=== PATIENT | female | born 1995 | race Caucasian/White ===

== ENCOUNTER 2017-06-22 17:35 | Observation (INO) ==
[2017-06-22 12:55] LABS: Amphetamine Screen,Urine Negative ng/mL (Cutoff=1000); Barbiturate Screen,Urine Negative ng/mL (Cutoff=200); Benzodiazepines Screen,Urine Negative ng/mL (Cutoff=200); Cannabinoid Screen,Urine Negative ng/mL (Cutoff = 50); Cocaine Screen,Urine Negative ng/mL (Cutoff= 300); Opiate Screen,Urine Negative ng/mL (Cutoff=300); Phencyclidine Screen,Urine Negative ng/mL (Cutoff=25)
[2017-06-22 12:56] LABS: Bilirubin,Urine Negative (Negative); Blood,Urine Negative (Negative); Clarity,Urine Cloudy (Clear); Color,Urine Yellow (Yellow); Glucose,Urine (UA) 500 mg/dL (Normal); Ketones,Urine Negative (Negative); Leukocyte Esterase,Urine Negative (Negative); Nitrite,Urine Negative (Negative); PH,Urine 6.5 pH Units (5.0-8.0); Protein,Urine Negative (Neg-Trace); Specific Gravity,Urine 1.018 (1.010-1.025); Urobilinogen,Urine Normal (Normal)
[2017-06-22 12:58] LABS: Hyaline Casts,Urine None Seen per lpf (None-Few); RBC,Urine 0-3 per hpf (0-3); WBC,Urine 0-3 per hpf (0-3)
[2017-06-22 13:11] LABS: Bacteria,Urine Moderate per hpf (None-Few)
[2017-06-22 13:12] LABS: Squamous Epithelial Cell,Urine Few per lpf (None-Few)
--- NOTE | 2017-06-22 13:25 | OB/GYN History & Physical ---
Date of Encounter: 06/22/17 Time of Encounter: 13:21 Assessment and Plan (1) 35 weeks gestation of Current visit: Yes Status: Acute Will give second dose of Betamethasone at 0200 GBS Negative (2) complicated by subutex maintenance, antepartum Current visit: Yes Status: Acute Continue medication as prescribed. History of Present Illness Chief complaint: Labor evaluation HPI: Ms. Tellez is a 22 year old female at 35w4d presents to labor and delivery from Dr. Porras's office for labor evaluation. Patient was seen @ [facility] for labor evaluation last night and was given Steroids at 0200 this morning. Patient states she was dilated 2 cm there and was 3-4cm for Dr. Porras. Patient has history of PTD at 35 weeks with abruption last . Patient denies feeling contractions. Reports +FM. Patient is on Subutex 4mg po BID. Patient's blood type: A+, Rubella: Immune, Hep B: Nonreactive, GBS: Negative. Past Med Surg Social Fam HX - Past Medical History Source: patient Medical history: no medical history Psychiatric history: depression - Past Surgical History Surgical History: no surgical history - Social History Smoking Status: Never smoker Drug use: other Current living situation: Home - Independent Activity Level: Independent ambulation Recent Out of Country Travel Within the Last 8 Weeks: No Exposure or Possible Exposure to Illness During Travel: No - Family History Mother Name: selina couch Family Member Ethnicity: Non- Living Status: Still Living Hx Family Cardiac Disorders: No Hx Family Respiratory Disorders: No Hx Family Cancer: No Hx Family GI Disorders: No Hx Family Genitourinary Disorders: No Hx Family Endocrine Disorder: Yes (thyroid) Hx Family Musculoskeletal Disorders: No Hx Family Neuromuscular Disorders: No Hx Family Neurologic Disorders: No Hx Family HEENT Disorders: No Hx Family Autoimmune Disorders: No Hx Family Reproductive Disorders: No Hx Family Psychosocial Disorders: No Hx Family Medical Disorders: No Obstetrical History - Pregnancies : 2 Para: 1 Term: 0 : 1 Ab's: 0 Livin Review of System OB - Constitutional Constitutional ROS IM: no chills, no fever(s), no headache(s) - Cardiovascular Cardiovascular: no palpitations, no rapid heart rate, no syncope - Respiratory Respiratory: no cough - Gastrointestinal Gastrointestinal: no abdominal pain, no diarrhea, no heartburn, no nausea, no vomiting - Genitourinary Genitourinary: no abnormal vaginal bleeding, no dysuria, no flank pain, no urinary frequency, no urinary urgency, no vaginal discharge, no vaginal odor Exam - Constitutional Constitutional: well developed, well nourished, no acute distress, average body habitus - HEENT HEENT: Normocephaly, Mucus Membranes Moist - Neck Neck exam: full ROM, supple - Lungs Respiratory exam: CTAB - Cardiovascular Cardiovascular exam: RRR, +S1, +S2 - Abdomen Abdomen: Present: bowel sounds normal, gravid, non tender - Extremities Extremities exam: full ROM, normal capillary refill, normal inspection Deep Tendon Reflex Grade: 2+ Normal - Cervix Dilation: 4 (per RN) Effacement: 70 Station: -2 - Uterus Uterus exam: Present: normal size, normal contour - Comments Comments: FHR 125 bpm moderate variability +15x15 accels decel noted with FHR dropping down to 60 bpm. IV started, patient repositioned, Dr. Key notified. Results Abnormal lab results Urine Clarity Cloudy (Clear) A 06/22/17 12:35 Urine Glucose (UA) 500 mg/dL (Normal) H 06/22/17 12:35 Urine Bacteria Moderate per hpf (None-Few) H 06/22/17 12:35 All other labs normal. - VTE Reasons for not Prescribing Prophylaxis: Treatment not Indicated - Low risk for VTE
--- NOTE | 2017-06-22 13:29 | Anesthesia Evaluation PreOp ---
Date of Encounter: 06/22/17 Time of Encounter: 13:27 - Past History Planned Operation: ronni Cardiac History: Denies any Significant Hx Pulmonary History: Denies Any Significant HX METALLURGIST PROCESS History: Denies Any Significant HX Other Medical History: Other (IV drug abuse, currently in subutex clinic) Anesthesia History: No Prior Anesthetic Complications, Past Anesthesia (none, no family history of anesthetic problems) : Yes (, 35 weeks) Alcohol Use: none Drug use: other - Meds/Allergy Pre-op Review Medications Reviewed: Yes Allergies Reviewed: Yes Beta Blockers on Current Med List: No Anesthesia Exam Weight: 64 - HEENT Pupil (Motor): Pupils equal Mallampati: II Teeth: Normal Oral Opening: Greater than 3 - METALLURGIST PROCESS LOC: Oriented METALLURGIST PROCESS Motor: Normal RUE, Normal LUE, Normal RLE, Normal LLE, Normal Face METALLURGIST PROCESS Sensory: Normal: RUE, LUE, RLE, LLE, Face - Cardiac Rhythm: Regular Murmur: None JVD: No Carotid Bruit: No - Pulmonary Breath Sounds: bilateral Clear Respiratory Effort: Symmetrical Anesthesia Assess/Plan ASA Score: 2 Modified Valeria Scale for Level of Consciousness: Cooperative, oriented, and tranquil Anesthetic Plan: Regional
[2017-06-22 13:41] LABS: Basophils % 0.2 %; Hematocrit 31.3 % (35.3-44.9); Hemoglobin 10.3 g/dL (11.5-15.4); Lymphocytes % 15.8 %; Mean Corpuscular HGB Conc 32.9 g/dL (31.6-35.5); Mean Corpuscular Hemoglobin 26.7 pg (28.0-33.3); Mean Corpuscular Volume 81.1 fL (83.0-100.0); Mean Platelet Volume 9.9 fL (9.4-12.4); Monocytes # 0.4 K/mcL (0.0-1.3); Monocytes % 2.9 %; Neutrophils # 10.1 K/mcL (1.6-8.9); Platelet Count 380 K/mcL (140-400); Red Blood Count 3.86 M/mcL (3.82-4.97); Red Cell Distribution Width 12.5 % (11.5-14.5); Segmented Neutrophils % 80.1 %
--- NOTE | 2017-06-22 16:34 | OB Labor Progress Note ---
Date of Encounter: 06/22/17 Time of Encounter: 16:32 Labor Progress Note - Subjective Subjective: Patient resting in bed. Discussed POC with patient. Patient denies any questions or concerns - Cervix Cervix: 4/80/-3 - Heart Tones Heart Tones: 120 bpm moderate variability +15x15 accels no decels - [place]: irregular contractions noted - Interventions Interventions: SVE, discussed Patient with Dr. Key - Plan Plan: send patient to floor NST Q shift Steroids at 0200 Possible discharge home in AM
[2017-06-22] MEDS ORDERED: Ringers Solution, Lactated 1,000 ML IVC ONE (17:51)
[2017-06-22 19:43] VITALS: BP 119/69
[2017-06-22] MEDS ORDERED: *HR* Buprenorphine HCl 2 MG SUBLINGUAL TABLET SL SCH (21:00)
[2017-06-23] MEDS ORDERED: Betamethasone Acet/SodPhos 6 MG/ML MDV IM ONE (02:00)
--- NOTE | 2017-06-23 02:46 | Discharge Summary ---
Date of Encounter: 06/23/17 Time of Encounter: 02:46 - Discharge Diagnosis (1) 35 weeks gestation of Priority: Primary Status: Acute Comments: false labor Second dose of steroids given (2) complicated by subutex maintenance, antepartum Priority: Secondary Status: Acute - Discharge Medications Home Medications: Buprenorphine HCl [Subutex] 4 mg SL BID 06/22/17 [History] Vit/Iron Fumarate/FA [ Tablet] 1 each PO DAILY 06/22/17 [ History] Allergies/Adverse Reactions: 3 Allergy/AdvReac Type Severity Reaction Status Date / Time No Known Allergies Allergy Verified 06/22/17 13:32 Data Procedures and tests throughout hospitalization: Laboratory Tests 06/22/17 06/22/17 06/22/17 12:35 12:35 13:27 WBC 12.6 H RBC 3.86 Hgb 10.3 L Hct 31.3 L MCV 81.1 L MCH 26.7 L MCHC 32.9 RDW 12.5 Plt Count 380 MPV 9.9 Immature Gran % 1.0 Seg Neutrophils % 80.1 Lymphocytes % 15.8 Monocytes % 2.9 Eosinophils % 0.0 Basophils % 0.2 Neutrophils # 10.1 H Lymphocytes # 2.0 Monocytes # 0.4 Eosinophils # 0.0 Basophils # 0.0 Urine Color Yellow Urine Clarity Cloudy A Urine pH 6.5 Ur Specific Mcgrady 1.018 Urine Protein Negative Urine Glucose (UA) 500 H Urine Ketones Negative Urine Blood Negative Urine Nitrite Negative Urine Bilirubin Negative Urine Urobilinogen Normal Ur Leukocyte Esterase Negative Urine Microscopic RBC 0-3 Urine Microscopic WBC 0-3 Ur Squamous Epith Cells Few Urine Bacteria Moderate H Hyaline Casts None Seen Ur Culture Indicated? NO Urine Opiates Screen Negative Ur Barbiturates Screen Negative Ur Phencyclidine Scrn Negative Ur Amphetamines Screen Negative U Benzodiazepines Scrn Negative Urine Cocaine Screen Negative U Marijuana (THC) Screen Negative Labs on day of discharge: Labs from last 24 hours 06/22/17 06/22/17 06/22/17 13:27 12:35 12:35 WBC 12.6 H RBC 3.86 Hgb 10.3 L Hct 31.3 L MCV 81.1 L MCH 26.7 L MCHC 32.9 RDW 12.5 Plt Count 380 MPV 9.9 Immature Gran % 1.0 Seg Neutrophils % 80.1 Lymphocytes % 15.8 Monocytes % 2.9 Eosinophils % 0.0 Basophils % 0.2 Neutrophils # 10.1 H Lymphocytes # 2.0 Monocytes # 0.4 Eosinophils # 0.0 Basophils # 0.0 Urine Color Yellow Urine Clarity Cloudy A Urine pH 6.5 Ur Specific Mcgrady 1.018 Urine Protein Negative Urine Glucose (UA) 500 H Urine Ketones Negative Urine Blood Negative Urine Nitrite Negative Urine Bilirubin Negative Urine Urobilinogen Normal Ur Leukocyte Esterase Negative Urine Microscopic RBC 0-3 Urine Microscopic WBC 0-3 Ur Squamous Epith Cells Few Urine Bacteria Moderate H Hyaline Casts None Seen Ur Culture Indicated? NO Urine Opiates Screen Negative Ur Barbiturates Screen Negative Ur Phencyclidine Scrn Negative Ur Amphetamines Screen Negative U Benzodiazepines Scrn Negative Urine Cocaine Screen Negative U Marijuana (THC) Screen Negative Date of admission: 06/22/17 11:56 Primary care physician: PCP NONE Discharging clinician: Jenni Sandoval Anticipated date of discharge: 06/23/17 - Patient Status Disposition: Home, Self-Care Condition: Good Functional capacity at discharge: independent ambulation - Discharge Instructions Follow Up With: NONE,PCP [Primary Care Provider] - Tawanda Porras MD [Partnered Physician] - - Diet and Activity Activity: increase activity as tolerated Diet: regular diet Hospital Course ACTIVE DIRECTORY ADMINISTRATOR Time Attestation: Total time spent providing and/or coordinating discharge services: Time Spent: Less than 30 minutes Exam - Constitutional Vitals: Temp Pulse Resp BP Pulse Ox 98.2 F 95 18 119/69 100 06/22/17 19:42 06/22/17 19:42 06/22/17 19:42 06/22/17 19:42 06/22/17 19:42 General appearance IM: A&O X 3, pleasant, answers questions appropriately - Other Additional findings: FHR 125 bpm moderate variability +15x15 accels no decels noted. Uterine irritability noted. SVE:4/80/-3 no cervical change. Patient requesting discharge home at this time. - VTE Reasons for not Prescribing Prophylaxis: Treatment not Indicated - Low risk for VTE
[2017-06-23] MEDS ORDERED: Prenatal Vit/FA 1 EACH TABLET PO SCH (09:00)
== END 2017-06-23 03:15 | disposition home or self-care (01) ==
LOC: 1NENULAB → 1NENUOBS 17:35
PROVIDERS: ADMIT Obstetrics & Gynecology; ATTEND Obstetrics & Gynecology

== ENCOUNTER → 2017-06-27 09:11 | Observation (INO) ==
--- NOTE | 2017-06-27 00:43 | OB/GYN History & Physical ---
Date of Encounter: 06/27/17 Time of Encounter: 00:40 Assessment and Plan (1) 36 weeks gestation of Current visit: Yes Status: Acute Admit for heart monitoring and labor evaluation. (2) complicated by subutex maintenance, antepartum Current visit: No Status: Acute Continue prescribed dose of Subutex (3) uterine contractions in third trimester, antepartum Current visit: Yes Status: Acute labor evaluation History of Present Illness Chief complaint: contractions HPI: Ms. Tellez is a 22 year old female at 36w2d who arrives with complaints of contractions today. Patient received a course of steroids due to contractions and SVE of [address] Porras SVE, last dose of steroids on . Patient reports positive movement, denies vaginal bleeding and leakage of fluid. Patient is on Subutex and in group with Dr. Porras. Last office visit 06/22/17. Blood Type A+ HbSAG negative Rubella Immune Varicella Immune T. Pallidum negative GBS negative HIV negative Hep C Positive Past Med Surg Social Fam HX - Past Medical History Source: patient Medical history: no medical history Psychiatric history: depression - Past Surgical History Surgical History: no surgical history - Social History Smoking Status: Never smoker Alcohol use: none Drug use: other (Subutex) Current living situation: Home - Independent Activity Level: Independent ambulation Recent Out of Country Travel Within the Last 8 Weeks: No Exposure or Possible Exposure to Illness During Travel: No - Family History Mother Family Member Ethnicity: Non- Living Status: Still Living Hx Family Cardiac Disorders: No Hx Family Respiratory Disorders: No Hx Family Cancer: No Hx Family GI Disorders: No Hx Family Endocrine Disorder: Yes (thyroid) Hx Family Neuromuscular Disorders: No Hx Family Neurologic Disorders: No Hx Family HEENT Disorders: No Hx Family Autoimmune Disorders: No Obstetrical History - Pregnancies : 2 Para: 1 Term: 0 : 1 Ab's: 0 Livin - History/Complications History/Complications: Previous delivery & placental abruption Medications and Allergies Buprenorphine HCl [Subutex] 4 mg SL BID 06/22/17 [History] Vit/Iron Fumarate/FA [ Tablet] 1 each PO DAILY 06/22/17 [ History] 3 Allergy/AdvReac Type Severity Reaction Status Date / Time No Known Allergies Allergy Verified 06/22/17 13:32 Review of System OB All systems PM: reviewed and no additional remarkable complaints except as stated Exam - Constitutional Constitutional: well developed, well nourished, no acute distress, average body habitus - Neck Neck exam: full ROM, normal inspection - Lungs Respiratory exam: CTAB - Cardiovascular Cardiovascular exam: RRR, +S1, +S2 - Abdomen Abdomen: Present: bowel sounds normal, gravid, non tender - Extremities Extremities exam: full ROM, normal capillary refill, normal inspection - Cervix Dilation: 4 (Per RN) Effacement: 80 - Uterus Uterus exam: Present: normal size - Comments Comments: FHR currently 150 bpm, moderate variability, no accels. FHR initially WNL, then patient felt a large movement and heart rate kristopher to 210 bpm with minimal variability. Over the next 30 minutes, with IV fluid bolus, FHR decreased to 150 bpm with moderate variability. Dr. Key notified of FHR. Irregular contractions noted on toco, patient breathing through contractions. Results All other labs normal. - VTE Reasons for not Prescribing Prophylaxis: Treatment not Indicated - Low risk for VTE
[2017-06-27 00:44] LABS: Basophils % 0.3 %; Eosinophils # 0.2 K/mcL (0.0-0.6); Hematocrit 33.9 % (35.3-44.9); Hemoglobin 11.4 g/dL (11.5-15.4); Immature Granulocytes % 0.8 % (0-4); Lymphocytes # 2.5 K/mcL (0.6-4.6); Mean Corpuscular HGB Conc 33.6 g/dL (31.6-35.5); Mean Corpuscular Hemoglobin 27.1 pg (28.0-33.3); Mean Corpuscular Volume 80.5 fL (83.0-100.0); Mean Platelet Volume 9.9 fL (9.4-12.4); Monocytes # 1.4 K/mcL (0.0-1.3); Neutrophils # 11.2 K/mcL (1.6-8.9); Platelet Count 436 K/mcL (140-400); Red Blood Count 4.21 M/mcL (3.82-4.97); Red Cell Distribution Width 12.2 % (11.5-14.5); Segmented Neutrophils % 72.9 %
[2017-06-27 00:46] LABS: Bilirubin,Urine Negative (Negative); Blood,Urine Negative (Negative); Clarity,Urine Clear (Clear); Color,Urine Yellow (Yellow); Glucose,Urine (UA) Normal (Normal); Ketones,Urine Negative (Negative); Leukocyte Esterase,Urine Negative (Negative); Nitrite,Urine Negative (Negative); Protein,Urine Negative (Neg-Trace); Specific Gravity,Urine 1.007 (1.010-1.025); Urobilinogen,Urine Normal (Normal)
[2017-06-27 00:51] LABS: Amphetamine Screen,Urine Negative ng/mL (Cutoff=1000); Barbiturate Screen,Urine Negative ng/mL (Cutoff=200); Benzodiazepines Screen,Urine Negative ng/mL (Cutoff=200); Cannabinoid Screen,Urine Negative ng/mL (Cutoff = 50); Cocaine Screen,Urine Negative ng/mL (Cutoff= 300); Opiate Screen,Urine Negative ng/mL (Cutoff=300); Phencyclidine Screen,Urine Negative ng/mL (Cutoff=25)
[2017-06-27 01:48] VITALS: BP 120/70
[~2017-06-27 09:11] MED LIST: Ringers Solution, Lactated 1,000 ML IVC SCH; Ringers Solution, Lactated 1,000 ML ONE
--- NOTE | 2017-06-27 09:26 | OB/GYN Progress Note ---
Date of Encounter: 06/27/17 Time of Encounter: 09:24 - Assessment and Plan (1) heart rate decelerations affecting management of mother Current Visit: Yes Status: Acute IV fluids given. Resolution of variables and tachycardia. At time of discharge heart rate tracing was category 1. Bedside biophysical profile showed normal amniotic fluid and BPP 8/8. Follow-up with ultrasound and repeat BPP scheduled on 06/[address] Porras, primary OB. Dr. Porras has been notified of the patient's visit and findings (2) 36 weeks gestation of Current Visit: Yes Status: Acute Patient receives care with Dr. Porras. No active labor at this visit (3) complicated by subutex maintenance, antepartum Current Visit: No Status: Chronic The patient is followed and treated for this with Dr. Porras Subjective - Subjective Principal diagnosis: 36 weeks Interval history: The patient reports an active fetus. She denies any loss of fluid or vaginal bleeding. She appreciates her contractions but they are irregular and infrequent. Antepartum ROS: movement normal, contractions, no new complaints Objective - Vital Signs Vital Signs: Vital Signs Temp Pulse Resp BP 06/27/17 00:00 98.5 F 103 16 120/70 Intake and Output 06/26/17 06/27/17 06/27/17 23:59 07:59 15:59 Other: Weight 65 kg Patient Weight 06/27/17 23:59 Weight 65 kg - Exam FHR: other (Initial monitoring revealed a variable D cell with rebound tachycardia to the 200s) FHR comments: 130s, CAT 1 at time of exam Abdomen: Present: gravid. Absent: tenderness Cervical dilation: 3 Cervix effacement: 70 station: -1 Comments: Bedside ultrasound revealed a vertex fetus that was active, BPP 8/8, TISHA 20 - Labs Labs: Abnormal lab results WBC 15.4 K/mcL (4.3-11.1) H 06/27/17 00:36 Hgb 11.4 g/dL (11.5-15.4) L 06/27/17 00:36 Hct 33.9 % (35.3-44.9) L 06/27/17 00:36 MCV 80.5 fL (83.0-100.0) L 06/27/17 00:36 MCH 27.1 pg (28.0-33.3) L 06/27/17 00:36 Plt Count 436 K/mcL (140-400) H 06/27/17 00:36 Neutrophils # 11.2 K/mcL (1.6-8.9) H 06/27/17 00:36 Monocytes # 1.4 K/mcL (0.0-1.3) H 06/27/17 00:36 Ur Specific [place] 1.007 (1.010-1.025) L 06/27/17 00:36 - Allied health notes Allied health notes reviewed: nursing
== END | disposition home or self-care (01) ==
LOC: 1NENULAB
PROVIDERS: ADMIT Advanced Practice Midwife; ATTEND Advanced Practice Midwife

== ENCOUNTER → 2017-06-29 21:51 | Observation (INO) ==
[2017-06-29 16:03] LABS: Amphetamine Screen,Urine Negative ng/mL (Cutoff=1000); Barbiturate Screen,Urine Negative ng/mL (Cutoff=200); Benzodiazepines Screen,Urine Negative ng/mL (Cutoff=200); Cannabinoid Screen,Urine Negative ng/mL (Cutoff = 50); Cocaine Screen,Urine Negative ng/mL (Cutoff= 300); Opiate Screen,Urine Negative ng/mL (Cutoff=300); Phencyclidine Screen,Urine Negative ng/mL (Cutoff=25)
--- NOTE | 2017-06-29 16:44 | OB/GYN History & Physical ---
Date of Encounter: 06/29/17 Time of Encounter: 16:42 Assessment and Plan (1) uterine contractions in third trimester, antepartum Current visit: No Status: Acute FHT reactive and assuring -Monitor for cervical change -No loss of fluid or vaginal bleeding No cervical change on serial cervical exams over 5 hours. offered to let stay but desires to go home. Discharged to home with when to return and labor precautions. Pt verbalizes understanding (2) complicated by subutex maintenance, antepartum Current visit: No Status: Chronic Patient currently receiving subutex treatment. -This is private and the family is unaware. (3) 36 weeks gestation of Current visit: No Status: Acute History of Present Illness Chief complaint: Contractions HPI: Ms. Tellez is a 22 year old female at 36 weeks 4 days who presents to [facility] after being transferred from the office for labor evaluation. Upon arrival , patient's cervix was dilated 5-6 centimeters. Patient reports contractions but is unsure of the length between. She denies vaginal bleeding or leaking of fluid. She reports good movement. She appears anxious and restless desiring to have the baby today. She denies headaches, nausea, vomitting, RUQ pain, fevers or chills. She denies any dysuria and difficulty voiding. Patient is currently receiving Subutex, although she desires to keep this private from her family. Group B strep negative Hepatitis B surface antigen nonreactive HIV negative Treponema pallidum negative Rubella immune Varicella-zoster immune A positive Negative antibody screen Past Med Surg Social Fam HX - Past Medical History Attestation: Yes The following information was validated with the patient. Source: patient Medical history: no medical history Psychiatric history: depression - Past Surgical History Surgical History: no surgical history (Dental work) - Social History Smoking Status: Former smoker Smokeless Tobacco Status: No Alcohol use: none Drug use: other - Family History Mother Family Member Ethnicity: Non- Living Status: Still Living Hx Family Cardiac Disorders: No Hx Family Respiratory Disorders: No Hx Family Cancer: No Hx Family GI Disorders: No Hx Family Endocrine Disorder: Yes (hypothyroidism) Hx Family Neuromuscular Disorders: No Hx Family Neurologic Disorders: No Hx Family HEENT Disorders: No Hx Family Autoimmune Disorders: No Obstetrical History - Pregnancies : 2 Para: 1 Term: 1 : 0 Ab's: 0 Livin - History/Complications History/Complications: Previous complicated by early delivery at 35 weeks secondary to minor placental abruption. Medications and Allergies Buprenorphine HCl [Subutex] 4 mg SL BID 06/22/17 [History] Vit/Iron Fumarate/FA [ Tablet] 1 each PO DAILY 06/22/17 [ History] 3 Allergy/AdvReac Type Severity Reaction Status Date / Time No Known Allergies Allergy Verified 06/22/17 13:32 Review of System OB All systems PM: reviewed and no additional remarkable complaints except as stated - Constitutional Constitutional ROS IM: no chills, no fever(s), no headache(s) - Cardiovascular Cardiovascular: no chest pain, no dyspnea, no edema, no pedal edema - Respiratory Respiratory: no cough, no dyspnea, no wheezing - Gastrointestinal Gastrointestinal: no abdominal pain, no belching, no vomiting - Genitourinary Genitourinary: no urinary frequency, no urinary urgency, no vaginal odor - Neurological Nerological: no headache(s), no loss of vision Exam - Constitutional Constitutional: well developed, well nourished, no acute distress - HEENT HEENT: Mucus Membranes Moist - Lungs Respiratory exam: CTAB - Cardiovascular Cardiovascular exam: RRR - Abdomen Abdomen: Present: bowel sounds normal, gravid, non tender - Extremities Extremities exam: normal inspection, radial pulses palpable and symmetrical Deep Tendon Reflex Grade: 3+ Normal But Brisk - Cervix Dilation: 5 Effacement: 80 Station: -2 - Adnexa Adnexa: bilateral: normal, mass, tenderness - Comments Comments: FHT moderate variabiliy, 15x15 accelarations, 140bpm, contractions q2-3 Results All other labs normal. - VTE Reasons for not Prescribing Prophylaxis: Treatment not Indicated - Low risk for VTE
== END | disposition home or self-care (01) ==
LOC: 1NENULAB
PROVIDERS: ADMIT Student in an Organized Health Care Education/Training Program; ATTEND Student in an Organized Health Care Education/Training Program

== ENCOUNTER → 2017-07-02 00:35 | Observation (INO) ==
--- NOTE | 2017-07-02 00:52 | OB/GYN Progress Note ---
Date of Encounter: 07/02/17 Time of Encounter: 00:49 - Assessment and Plan (1) Non-stress test reactive Current Visit: Yes Status: Acute 140 bpm, moderate variability, +15x15 accels, no decels. Category I tracing. (2) 37 weeks gestation of Current Visit: Yes Status: Acute Evaluate for labor/contractions. (3) complicated by subutex maintenance, antepartum Current Visit: No Status: Chronic Follow up as scheduled. Continue Subutex as ordered by Dr. Porras. (4) uterine contractions in third trimester, antepartum Current Visit: No Status: Acute Evaluate for labor SVE without change. Subjective - Subjective Principal diagnosis: contractions Interval history: Pt arrives this evening with complaint of painful uterine contractions. Reports good movement, denies leakage of fluid and vaginal bleeding. Patient has a centering appointment tomorrow and sees Dr. Porras for a routine visit on Thursday of next week. SVE 4/thick/high and unchanged while being here for evaluation. Labor precautions discussed with patient and she understands when to return to the hospital. Antepartum ROS: movement normal, contractions, no loss of fluid, no vaginal bleeding Objective - Vital Signs Vital Signs: Intake and Output 07/01/17 07/01/17 07/02/17 15:59 23:59 07:59 Other: Weight 66.1 kg - Exam FHR: category 1 Auscultation: bilateral: normal Abdomen: Present: normal appearance, soft, gravid Uterus: Present: normal Cervical dilation: 4 Cervix effacement: Thick station: Ballotable
== END | disposition home or self-care (01) ==
LOC: 1NENULAB
PROVIDERS: ADMIT Obstetrics & Gynecology; ATTEND Obstetrics & Gynecology

== ENCOUNTER 2017-07-02 23:25 | Inpatient (IN) ==
[~2017-07-02 23:25] MED LIST changes: +*HR* FentaNYL (PF) 100 MCG/2 ML VIAL ONE; +*HR* Ropivacaine/PF 0.2% 10 ML AMPUL ONE; +Epidural Premix (fent/bupiv) 110 ML EP ONE; +Famotidine 20 MG/2 ML VIAL IVP PRN; +Metoclopramide 10 MG/2 ML VIAL IVP PRN; +Naloxone 0.4 MG/ML INJ IVP PRN
[2017-07-02 23:35] LABS: Basophils % 0.2 %; Eosinophils # 0.8 K/mcL (0.0-0.6); Eosinophils % 3.9 %; Hematocrit 37.2 % (35.3-44.9); Hemoglobin 12.1 g/dL (11.5-15.4); Immature Granulocytes % 0.8 % (0-4); Lymphocytes # 2.9 K/mcL (0.6-4.6); Lymphocytes % 14.2 %; Mean Corpuscular HGB Conc 32.5 g/dL (31.6-35.5); Mean Corpuscular Hemoglobin 26.5 pg (28.0-33.3); Mean Corpuscular Volume 81.6 fL (83.0-100.0); Mean Platelet Volume 10.1 fL (9.4-12.4); Monocytes # 1.4 K/mcL (0.0-1.3); Monocytes % 6.9 %; Neutrophils # 15.4 K/mcL (1.6-8.9); Platelet Count 378 K/mcL (140-400); Red Blood Count 4.56 M/mcL (3.82-4.97); Red Cell Distribution Width 12.8 % (11.5-14.5)
[2017-07-02 23:43] LABS: Amphetamine Screen,Urine Negative ng/mL (Cutoff=1000); Barbiturate Screen,Urine Negative ng/mL (Cutoff=200); Benzodiazepines Screen,Urine Negative ng/mL (Cutoff=200); Cannabinoid Screen,Urine Negative ng/mL (Cutoff = 50); Cocaine Screen,Urine Negative ng/mL (Cutoff= 300); Opiate Screen,Urine Negative ng/mL (Cutoff=300); Phencyclidine Screen,Urine Negative ng/mL (Cutoff=25)
--- NOTE | 2017-07-02 23:45 | Anesthesia Evaluation PreOp ---
Date of Encounter: 07/02/17 Time of Encounter: 23:29 - Past History Planned Operation: ronni Cardiac History: Denies any Significant Hx Pulmonary History: Denies Any Significant HX ENVIRONMENTAL TEST TECHNICIAN History: Denies Any Significant HX Other Medical History: Denies Any Significant HX Anesthesia History: No Prior Anesthetic Complications, Past Anesthesia : Yes (37 weeks, ) Alcohol Use: none Drug use: other (iv drug abuse, current in our centering program) Medications and Allergies Buprenorphine HCl [Subutex] 4 mg SL BID 06/22/17 [History] Vit/Iron Fumarate/FA [ Tablet] 1 each PO DAILY 06/22/17 [ History] 3 Allergy/AdvReac Type Severity Reaction Status Date / Time No Known Allergies Allergy Verified 07/02/17 23:08 - Meds/Allergy Pre-op Review Medications Reviewed: Yes Allergies Reviewed: Yes Beta Blockers on Current Med List: No Anesthesia Results - Labs 07/02/17 23:18 Anesthesia Exam O2 Sat Height 1.65 m Weight 65 kg Height: 65 Weight: 65 - HEENT Pupil (Motor): Pupils equal Mallampati: II Teeth: Normal Oral Opening: Greater than 3 - ENVIRONMENTAL TEST TECHNICIAN LOC: Oriented ENVIRONMENTAL TEST TECHNICIAN Motor: Normal RUE, Normal LUE, Normal RLE, Normal LLE, Normal Face ENVIRONMENTAL TEST TECHNICIAN Sensory: Normal: RUE, LUE, RLE, LLE, Face - Cardiac Rhythm: Regular Murmur: None JVD: No Carotid Bruit: No - Pulmonary Breath Sounds: bilateral Clear Respiratory Effort: Symmetrical Anesthesia Assess/Plan ASA Score: 2 Modified Valeria Scale for Level of Consciousness: Cooperative, oriented, and tranquil Anesthetic Plan: Regional Monitoring Plan: Standard Monitors
--- NOTE | 2017-07-02 23:47 | Anesthesia Procedures ---
Date of Encounter: 07/02/17 Time of Encounter: 23:29 Procedures: Anesthesia - Epidural/Spinal Patient ID/Chart reviewed: Yes Patient examined: Yes OB Eval: Gestational age: 37 OB Eval: : 2 OB Eval: Hx Para: 1 OB Eval: Contractions: Non-stressed pattern Consent Obtained: Yes Supplemental Oxygen: None/Room Air Site Prep: Aseptic Technique Patient position: upright Local Anesthetic: Lidocaine 1% Amount of Local Anesthetic used: 3 Touhy Needle Gauge: 18 Touhy Needle Depth (cm): 4 Catheter Depth at Skin (cm): 10 Test Dose (1.5% Lido + Epi): Volume given (mls): 3 Test Dose Result: Negative Loading Dose: Fentanyl (mcg): 100 Loading Dose: Other: 8ml .2% ropivicaine Loading Dose Administered: Thru Touhy Needle Infusion Med: 0.125% Bupivacaine w/ 2 mcg/ml Fentanyl Infusion Rate (mls/hr): [address]: Tegaderm Interspace Used: L3-L4 Loss of Resistance (BRETT): Yes Blood: No CSF: No Paresthesia: No Procedure: Strict asepsis, good brett, fhr unchanged
--- NOTE | 2017-07-02 23:59 | OB/GYN History & Physical ---
Date of Encounter: 07/03/17 Time of Encounter: 23:40 Assessment and Plan (1) 37 weeks gestation of Current visit: No Status: Acute admitted for labor (2) Uterine contractions Current visit: Yes Status: Acute Patient in active labor with contracitons 3 minutes apart and cervix being 8 cm dialted. She will be admitted to labor and delivery. - IV fluids. - Epidural. - NST assessment. (3) Tobacco smoking affecting Current visit: Yes Status: Acute Qualifiers: Trimester: third trimester Qualified Code(s): O99.333 - Smoking (tobacco) complicating , third trimester (4) complicated by subutex maintenance, antepartum Current visit: No Status: Chronic Continue subutex per RX History of Present Illness Chief complaint: Uterine Contractions HPI: Ms. Tellez is a 22 year old female at 37 0/7 weeks gestation with a PMH of opioid dependence and tobacco use during this that presents for active labor. She says her contractions started around 7:00 pm and have been 3 minutes apart. She denies any vaginal fluid leakage but admits to some vaginal bleeding earlier this morning. She denies any JEAN-BAPTISTE or vision changes. She denies any chest pain, fever, chills, nausea, vomiting, dysuria, or diarrhea. GBS: negative HepBSAg: non-reactive (02/16/17) HIV Ag/Ab: negative T. Pallidum Ab: negative Rubella Ab: positive Varicella Ab: positive Blood Type: A+ All other labs normal Past Med Surg Social Fam HX - Past Medical History Source: patient Medical history: no medical history Psychiatric history: depression - Past Surgical History Surgical History: other - Social History Smoking Status: Former smoker Smokeless Tobacco Status: No Alcohol use: none Drug use: other (iv drug abuse, current in our centering program) Current living situation: Home - Independent Activity Level: Independent ambulation Recent Out of Country Travel Within the Last 8 Weeks: No Exposure or Possible Exposure to Illness During Travel: No - Family History Mother Family Member Ethnicity: Non- Living Status: Still Living Hx Family Cardiac Disorders: No Hx Family Respiratory Disorders: No Hx Family Cancer: No Hx Family GI Disorders: No Hx Family Endocrine Disorder: Yes (hypothyroidism) Hx Family Neuromuscular Disorders: No Hx Family Neurologic Disorders: No Hx Family HEENT Disorders: No Hx Family Autoimmune Disorders: No Obstetrical History - Pregnancies : 2 Para: 1 Term: 1 : 0 Ab's: 0 Livin Medications and Allergies Buprenorphine HCl [Subutex] 4 mg SL BID 06/22/17 [History] Vit/Iron Fumarate/FA [ Tablet] 1 each PO DAILY 06/22/17 [ History] 3 Allergy/AdvReac Type Severity Reaction Status Date / Time No Known Allergies Allergy Verified 07/02/17 23:08 Exam - Vital Signs Vital signs: BP: 136/56 HR: 81 FHR: 147 [place]: 69 - Constitutional Constitutional: well developed, well nourished, no acute distress, average body habitus - Lungs Respiratory exam: CTAB - Cardiovascular Cardiovascular exam: RRR, +S1, +S2 - Abdomen Abdomen: Present: bowel sounds normal, gravid, non tender - Extremities Extremities exam: full ROM, normal inspection, radial pulses palpable and symmetrical Deep Tendon Reflex Grade: 2+ Normal - Cervix Dilation: 8 (per nurse) Results Result Diagrams: 07/02/17 23:18 Abnormal lab results WBC 20.8 K/mcL (4.3-11.1) H 07/02/17 23:18 MCV 81.6 fL (83.0-100.0) L 07/02/17 23:18 MCH 26.5 pg (28.0-33.3) L 07/02/17 23:18 Neutrophils # 15.4 K/mcL (1.6-8.9) H 07/02/17 23:18 Monocytes # 1.4 K/mcL (0.0-1.3) H 07/02/17 23:18 Eosinophils # 0.8 K/mcL (0.0-0.6) H 07/02/17 23:18 All other labs normal. - VTE Reasons for not Prescribing Prophylaxis: Treatment not Indicated - Low risk for VTE - Attending Attestation I examined this patient and my medical decision-making was reviewed with the Resident Physician. I agree with the documented findings, disposition and treatment plan as described except to the extent set forth below. BASSAM Dorsey
--- NOTE | 2017-07-03 00:34 | OB Labor Progress Note ---
Date of Encounter: 07/03/17 Time of Encounter: 00:32 Labor Progress Note - Subjective Subjective: Pt resting between the contractions after epidural placement. Having some pubic pain with contractions. - Cervix Cervix: 9/90/0 - Heart Tones Heart Tones: 145 bpm, moderate variability, +15x15 accels, no decels. Category I tracing - [place]: 2-3 minutes - Interventions Interventions: SVE, AROM for moderate amount of clear fluid. - Plan Plan: Continue labor management Anticipate
--- NOTE | 2017-07-03 01:54 | OB/GYN Procedure Note ---
Delivery - Delivery Date: 07/03/17 Provider: Jenni Sandoval [place] [facility] [place] Intrapartum events: none Delivery induction: none Delivery augmentation: rupture of membranes (at 9cm) Delivery monitor: external FHT, external uterine Anesthesia: epidural Estimated Blood Loss: 100 - (s) A Delivery Date: 07/03/17 Delivery Time: 01:30 Presentation: vertex Position: HERI Route of delivery: Gender: Male Viability: Viable Pounds: 6 Ounces: 14 Weight Gram: 3125 kg at 1 minute: 8 at 5 mins: 9 Shoulder Dystocia: not encountered Placenta: spontaneous Cord: 3 umbilical vessels - Repair Episiotomy: none Laceration Description: Labial, Superficial - Complications Delivery complications: none Delivery comments: Called to patient room due to her complaint of increased rectal pressure. Pt complete upon exam. Under maternal effort, of viable male infant over intact perineum. Bilateral superficial labial lacerations, hemostatic. NB to maternal abdomen, cord clamped and cut after pulsation ceased. Spontaneous delivery of intact placenta. No meconium, nuchal cord or shoulder dystocia encountered. EBL 100 mL. Mother and infant stable for 2 hour recovery. - Disposition Mom disposition: stable in LDR disposition: stable in LDR
[2017-07-03] MEDS ORDERED: Oxytocin 20 units/ LR 1000 mL 20 UNIT/1,000 ML BAG IVC SCH (02:14)
[2017-07-03] MEDS ORDERED: Acetaminophen 325 MG TABLET PO PRN (02:14)
[2017-07-03] MEDS ORDERED: Benzocaine/Menthol 56 GM AEROSOL SPRAY TP PRN (02:14)
[2017-07-03] MEDS: Ibuprofen 600 MG TABLET PO PRN ×2 (02:51→09:57)
[2017-07-03] MEDS: Prenatal Vit/FA 1 EACH TABLET PO SCH (09:57)
[2017-07-03] MEDS: *HR* Buprenorphine HCl 8 MG TAB.SUBL SL SCH ×2 (09:58→20:59)
[2017-07-04 08:25] VITALS: BP 104/59
[2017-07-04] MEDS: Ibuprofen 600 MG TABLET PO PRN (08:48)
[2017-07-04] MEDS: Prenatal Vit/FA 1 EACH TABLET PO SCH (08:48)
[2017-07-04] MEDS: *HR* Buprenorphine HCl 8 MG TAB.SUBL SL SCH (08:48)
--- NOTE | 2017-07-04 10:15 | Discharge Summary ---
Date of Encounter: 07/04/17 Time of Encounter: 10:13 - Discharge Diagnosis (1) Tobacco smoking affecting Priority: Secondary Status: Acute Qualifiers: Trimester: third trimester Qualified Code(s): O99.333 - Smoking (tobacco) complicating , third trimester (2) 37 weeks gestation of Priority: Primary Status: Acute (3) complicated by subutex maintenance, antepartum Priority: Secondary Status: Chronic (4) Vaginal delivery Priority: Primary Status: Acute - Discharge Medications Prescriptions: Ibuprofen [Motrin] 600 mg PO Q6HR PRN #60 tablet PRN Reason: Cramping Home Medications: Buprenorphine HCl [Subutex] 4 mg SL BID 06/22/17 [History] Vit/Iron Fumarate/FA [ Tablet] 1 each PO DAILY 06/22/17 [ History] Ibuprofen [Motrin] 600 mg PO Q6HR PRN #60 tablet 07/04/17 [Rx] Allergies/Adverse Reactions: 3 Allergy/AdvReac Type Severity Reaction Status Date / Time No Known Allergies Allergy Verified 07/02/17 23:08 Data Procedures and tests throughout hospitalization: Laboratory Tests 07/02/17 07/02/17 23:18 23:18 WBC 20.8 H RBC 4.56 Hgb 12.1 Hct 37.2 MCV 81.6 L MCH 26.5 L MCHC 32.5 RDW 12.8 Plt Count 378 MPV 10.1 Immature Gran % 0.8 Seg Neutrophils % 74.0 Lymphocytes % 14.2 Monocytes % 6.9 Eosinophils % 3.9 Basophils % 0.2 Neutrophils # 15.4 H Lymphocytes # 2.9 Monocytes # 1.4 H Eosinophils # 0.8 H Basophils # 0.0 Urine Opiates Screen Negative Ur Barbiturates Screen Negative Ur Phencyclidine Scrn Negative Ur Amphetamines Screen Negative U Benzodiazepines Scrn Negative Urine Cocaine Screen Negative U Marijuana (THC) Screen Negative Date of admission: 07/02/17 23:25 Primary care physician: PCP NONE Consults: 07/03/17 02:14 Consult to Mobile Architect [CONS] Routine Comment: Vaginal delivery, consult needed Consult to Earth Science Teacher [CONS] Routine Reason for SW Consult: Subutex Discharging clinician: Shelia Seo Anticipated date of discharge: 07/04/17 - Patient Status Disposition: Home, Self-Care Condition: Good Functional capacity at discharge: independent ambulation Overall status at discharge: patient is progressing back to baseline - Discharge Instructions - Diet and Activity Activity: resume usual activities as tolerated Diet: advance to your usual diet Hospital Course Reason for admission: active labor, IUP at term Delivery: Episiotomy: none Laceration: none Other procedures: none complications: none Discharge diagnosis: IUP at term delivered [place] baby: male Time Attestation: Total time spent providing and/or coordinating discharge services: Time Spent: Less than 30 minutes Exam - Constitutional Vitals: Temp Pulse Resp BP Pulse Ox 99.2 F 98 16 104/59 100 07/04/17 07:30 07/04/17 07:30 07/04/17 07:30 07/04/17 07:30 07/03/17 20:15 General appearance IM: A&O X 3 - Respiratory Respiratory exam: Present: CTAB - Cardiovascular Cardiovascular exam IM: Present: RRR - GI/Abdominal GI/Abdominal exam IM: soft - Uterus Position: 1 Finger Below Umbilicus - Extremities Exam Extremities exam IM: Absent: tenderness
== END 2017-07-04 10:40 | disposition home or self-care (01) | DRG 775 ==
LOC: 1NENULAB → 1NENUOBS 07-03 04:00
PROVIDERS: ADMIT Student in an Organized Health Care Education/Training Program; ATTEND Student in an Organized Health Care Education/Training Program

== ENCOUNTER 2019-03-09 19:33 | Inpatient (IN) ==
[2019-03-09 19:14] LABS: Amphetamine Screen,Urine Negative ng/mL (Cutoff=1000); Barbiturate Screen,Urine Negative ng/mL (Cutoff=200); Benzodiazepines Screen,Urine Negative ng/mL (Cutoff=200); Cannabinoid Screen,Urine Negative ng/mL (Cutoff = 50); Cocaine Screen,Urine Negative ng/mL (Cutoff= 300); Opiate Screen,Urine Negative ng/mL (Cutoff=300); Phencyclidine Screen,Urine Negative ng/mL (Cutoff=25)
--- NOTE | 2019-03-09 19:22 | OB/GYN History & Physical ---
Date of Encounter: 03/09/19 Time of Encounter: 19:03 Assessment and Plan (1) 38 weeks gestation of Current visit: Yes Status: Acute (2) Opiate abuse, episodic Current visit: Yes Status: Acute (3) Late care Current visit: Yes Status: Acute (4) heart rate decelerations affecting management of mother Current visit: No Status: Acute Prolonged deceleration noted to 60 BPM lasting approximately 3 minutes. Plan to admit for delivery. EPidural as requested. Will consider augmentation with pitocin if needed. Anticipate . (5) Uterine contractions Current visit: No Status: Acute History of Present Illness Chief complaint: contractions HPI: Ms. Tellez is a 23 year old female presenting at 38w2d with c/o contractions. She reports that she was having about one per hour since yesterday but they got closer to about every 10 minutes since her appointment today and even closer since. She denies leaking or bleeding. She was 4cm in office today. She does admit to a recent relapse of subutex abuse. She used to inject subutex prior to her last . She was in the baby centered recovery group with her last . She was clean until a few weeks ago when she used subutex off the street. This is also complicated by late care and marijuana use. She reports good FM. No other complaints today. Past Med Surg Social Fam HX - Past Medical History Medical history: no medical history Psychiatric history: depression - Past Surgical History Surgical History: no surgical history Additional surgical history: dental surgery - Social History Smoking Status: Never smoker Smokeless Tobacco Status: No Alcohol use: none Drug use: other - Family History Mother Family Member Ethnicity: Non- Living Status: Still Living Hx Family Cardiac Disorders: No Hx Family Respiratory Disorders: No Hx Family Cancer: No Hx Family GI Disorders: No Hx Family Endocrine Disorder: Yes (hypothyroidism) Hx Family Neuromuscular Disorders: No Hx Family Neurologic Disorders: No Hx Family HEENT Disorders: No Hx Family Autoimmune Disorders: No Obstetrical History - Pregnancies : 3 Para: 2 Term: 0 : 2 Ab's: 0 Livin Medications and Allergies Buprenorphine HCl [Subutex] 2 mg SL DAILY 06/22/17 [History] Vit/Iron Fumarate/FA [ Tablet] 1 each PO DAILY 06/22/17 [History] Allergy/AdvReac Type Severity Reaction Status Date / Time No Known Allergies Allergy Verified 07/02/17 23:08 Review of System OB All systems PM: reviewed and no additional remarkable complaints except as stated Exam - Constitutional Constitutional: well developed, well nourished, moderate distress - HEENT HEENT: Mucus Membranes Moist - Lungs Respiratory exam: CTAB - Cardiovascular Cardiovascular exam: RRR - Abdomen Abdomen: Present: gravid, non tender - Extremities Extremities exam: normal inspection - Vagina Vagina: Present: normal moisture - Cervix Dilation: 4 Effacement: 80 Station: -2 - Anus/Rectum Anus/Rectum: Present: normal perianal skin Results Result Diagrams: 03/09/19 19:31 All other labs normal. - VTE Reasons for not Prescribing Prophylaxis: Treatment not Indicated - Low risk for VTE
[~2019-03-09 19:33] MED LIST changes: -*HR* FentaNYL (PF) 100 MCG/2 ML VIAL ONE; -*HR* Ropivacaine/PF 0.2% 10 ML AMPUL ONE; -Epidural Premix (fent/bupiv) 110 ML EP ONE; +Ondansetron 4 MG/2 ML VIAL IVP PRN; -Ringers Solution, Lactated 1,000 ML IVC SCH
[2019-03-09] MEDS ORDERED: Ringers Solution, Lactated 1,000 ML IVC SCH (19:45)
[2019-03-09 19:51] LABS: Basophils % 0.3 %; Eosinophils # 0.2 K/mcL (0.0-0.6); Eosinophils % 1.5 %; Hematocrit 30.5 % (35.3-44.9); Hemoglobin 9.5 g/dL (11.5-15.4); Immature Granulocytes % 0.6 % (0-4); Lymphocytes # 2.8 K/mcL (0.6-4.6); Lymphocytes % 20.1 %; Mean Corpuscular HGB Conc 31.1 g/dL (31.6-35.5); Mean Corpuscular Hemoglobin 23.6 pg (28.0-33.3); Mean Corpuscular Volume 75.9 fL (83.0-100.0); Mean Platelet Volume 9.7 fL (9.4-12.4); Monocytes # 1.2 K/mcL (0.0-1.3); Monocytes % 8.7 %; Neutrophils # 9.6 K/mcL (1.6-8.9); Platelet Count 488 K/mcL (140-400); Red Blood Count 4.02 M/mcL (3.82-4.97); Red Cell Distribution Width 13.5 % (11.5-14.5); Segmented Neutrophils % 68.8 %
[2019-03-09] MEDS ORDERED: Famotidine 20 MG/2 ML VIAL IVP ONE (20:10)
[2019-03-09] MEDS ORDERED: *HR* FentaNYL (PF) 100 MCG/2 ML VIAL EP ONE (20:18)
[2019-03-09] MEDS ORDERED: Bupivacaine-MPF 0.25% 10 ML VIAL EP ONE (20:18)
[2019-03-09] MEDS ORDERED: *HR* FentaNYL (PF) 100 MCG/2 ML VIAL ONE (20:19)
[2019-03-09] MEDS ORDERED: Bupivacaine-MPF 0.25% 10 ML VIAL ONE (20:19)
[2019-03-09] MEDS ORDERED: Epidural Premix (fent/bupiv) 110 ML EP SCH (20:30)
--- NOTE | 2019-03-09 21:04 | Anesthesia Evaluation PreOp ---
Date of Encounter: 03/09/19 Time of Encounter: 20:36 - Past History Planned Operation: JANNETTE Cardiac History: Denies any Significant Hx Pulmonary History: Denies Any Significant HX REVENUE FIELD AUDITOR History: Denies Any Significant HX Other Medical History: Denies Any Significant HX Anesthesia History: No Prior Anesthetic Complications (never had any procedure requiring GA; denies family h/o GA complications), Past Anesthesia (JANNETTE x 2: one worked, one didn't) : Yes Alcohol Use: none Drug use: prescription drug abuse (buprenorphine), other Medications and Allergies Buprenorphine HCl [Subutex] 2 mg SL DAILY 06/22/17 [History] Vit/Iron Fumarate/FA [ Tablet] 1 each PO DAILY 06/22/17 [History] Allergy/AdvReac Type Severity Reaction Status Date / Time No Known Allergies Allergy Verified 07/02/17 23:08 - Meds/Allergy Pre-op Review Medications Reviewed: Yes Allergies Reviewed: Yes Beta Blockers on Current Med List: No Anesthesia Results - Labs 03/09/19 19:31 Anesthesia Exam O2 Sat Height 1.65 m Height 1.65 m Weight 62.3 kg Weight 62.3 kg NPO (# of Hours): solids >6hrs Pain Scale: 9 Pain Scale Used: Numeric (1 - 10) - HEENT Pupil (Motor): Pupils equal Mallampati: II Teeth: Normal Oral Opening: Greater than 3 - REVENUE FIELD AUDITOR LOC: Oriented REVENUE FIELD AUDITOR Motor: Normal RUE, Normal LUE, Normal RLE, Normal LLE, Normal Face REVENUE FIELD AUDITOR Sensory: Normal: RUE, LUE, RLE, LLE, Face - Cardiac Rhythm: Regular Murmur: None - Pulmonary Breath Sounds: bilateral Clear Respiratory Effort: Symmetrical Anesthesia Assess/Plan ASA Score: 2 Level of consciousness: Cooperative, Oriented, Restless Anesthetic Plan: Epidural Reason for No Neuroaxial/Regional Block: Other Autologous Blood: No Monitoring Plan: Standard Monitors Recovery Plan: Other
--- NOTE | 2019-03-09 21:07 | Anesthesia Procedures ---
Date of Encounter: 03/09/19 Time of Encounter: 21:05 Procedures: Anesthesia - Epidural/Spinal Patient ID/Chart reviewed: Yes Patient examined: Yes OB Eval: Gestational age: 38 weeks 2 days OB Eval: : 3 OB Eval: Hx Para: 2 OB Eval: Contractions: Non-stressed pattern Consent Obtained: Yes Supplemental Oxygen: None/Room Air Site Prep: Aseptic Technique, Sterile prep and drape, 0.5% Chlorhexidine/Alcohol Patient position: upright Local Anesthetic: Lidocaine 1% Amount of Local Anesthetic used: 3 Touhy Needle Gauge: 18 Touhy Needle Depth (cm): 6 Catheter Depth at Skin (cm): 11 Test Dose (1.5% Lido + Epi): Volume given (mls): 5 Test Dose Result: Negative Loading Dose: 0.25% Marcaine (mls): 5 Loading Dose: Fentanyl (mcg): 100 Loading Dose Administered: Thru Catheter Infusion Med: 0.125% Bupivacaine w/ 2 mcg/ml Fentanyl Infusion Rate (mls/hr): 14 (w/ demand bolus of 5mL q30min PRN) Catheter Secured in Place: Tegaderm, Tape Interspace Used: L4-L5 Loss of Resistance (BRETT): Yes Blood: No CSF: Yes Paresthesia: No Spinal Needle Gauge: 25 (intentional meningeal puncture using pencil point spinal needle through Tuohy) Procedure: successful on 1st attempt; patient tolerated procedure well; VSS Vitals + FHT's: Please see REINALDO Suero's electronic records for VS entry.
--- NOTE | 2019-03-09 22:17 | Event Note ---
Date of Encounter: 03/09/19 Time of Encounter: 22:15 Called the patient's bedside for heart rate deceleration. Patient had had an epidural placed at 45 minutes prior and had some mild hypotension. Patient was being repositioned by multiple labor and delivery staff. Cervical check she was 4-5/90/0 in vertex. There is no evidence of spontaneous rupture of membranes there felt to be 4 bag. The patient reported that she had a gush of fluid prior to the deceleration and there was some clear fluid on the patient's pad. With repositioning and IV fluids along with facemask oxygen the heart rate requiring liberated and became reassuring, category 1. The patient did give informed consent to proceed with a primary section should there be nonreassuring heart rate tracing that was persistent. She also is planning on a tubal ligation and has signed tubal papers. This was confirmed. She also gave consent for tubal ligation if her was needed.
[2019-03-10] MEDS ORDERED: Acetaminophen 325 MG TABLET PO ONE (03:22)
[2019-03-10] MEDS ORDERED: Oxytocin 20 units/ LR 1000 mL 20 UNIT/1,000 ML BAG IVC SCH ×2 (06:00→14:30)
--- NOTE | 2019-03-10 06:54 | Anesthesia Progress Note ---
Date of Encounter: 03/10/19 Time of Encounter: 06:51 Anesthesia Note - Note Note: called to patient bedside to evaluate breakthrough labor pain; patient reports bilateral lower pelvic pain; 5mL of 0.125% bupivicaine administered through catheter in two equally divided doses over a period of 5 min. Patient reports significant improvement in pain. VSS 03/10/19 06:51
--- NOTE | 2019-03-10 07:08 | OB Labor Progress Note ---
Date of Encounter: 03/10/19 Time of Encounter: 07:05 Labor Progress Note - Subjective Subjective: Pt more comfortable after epidural bolus dose. - Cervix Cervix: 5cm/80/0 per RN - Heart Tones Heart Tones: Category II, prolonged deceleration improved with repositioning, IV bolus and oxygen - Kenel Kenel: irregular - Plan Physician notified: Yes Physician notified details: Dr. Foote notified of prolonged FHT deceleration at time of decleration. Plan: Continue to monitor. Pitocin ordered prior to last deceleration but held due to concerns with FHT tracing.
[2019-03-10] MEDS ORDERED: Epidural Premix (fent/bupiv) 110 ML EP SCH (09:30)
--- NOTE | 2019-03-10 10:24 | OB Labor Progress Note ---
Date of Encounter: 03/10/19 Time of Encounter: 10:22 Labor Progress Note - Subjective Subjective: Patient getting uncomfortable; epidural not currently providing relief. - Vital Signs Vital Signs: VSS - Cervix Cervix: 6-7/80/BBOW - Heart Tones Heart Tones: 150 moderate variability with 15 x 15 accels occasional deceleration - [place]: Contractions every 2-3 minutes - Plan Plan: Continue routine labor management GBS negative Pitocin infusing; titrate as needed Consider AROM after Dr Tapia is in house vs Vaginal Delivery - will continue to monitor tracing closely POC per consult with Dr Tapia
--- NOTE | 2019-03-10 13:06 | OB Labor Progress Note ---
Date of Encounter: 03/10/19 Time of Encounter: 13:01 Labor Progress Note - Subjective Subjective: Ms Tellez states she is feeling her contractions in her lower abdomen only - Vital Signs Vital Signs: VSS - Cervix Cervix: 8/90/0 - Heart Tones Heart Tones: 125 moderate variability with 15 x 15 accels and no decels - [place]: Contractions every 2-3 minutes - Interventions Interventions: AROM for small amount of clear fluid; fetus and patient tolerated well. - Plan Physician notified: No Plan: Continue routine labor management GBS negative Pitocin infusing; titrate as needed Anticipate vaginal delivery POC per consult with Dr Tapia
--- NOTE | 2019-03-10 14:25 | OB/GYN Procedure Note ---
Delivery - Delivery Date: 03/10/19 Provider: Ning Jacobo Intrapartum events: none Delivery induction: none Delivery augmentation: pitocin Delivery monitor: external FHT, external uterine Anesthesia: epidural Quantitated Blood Loss: 100 - (s) Infant A Infant Delivery Date: 03/10/19 Infant Delivery Time: 13:50 Presentation: vertex Position: HERI Route of delivery: Gender: Male Viability: Viable Pounds: 8 Ounces: 7 Weight Gram: 3.825 kg at 1 minute: 8 at 5 mins: 9 Shoulder Dystocia: not encountered Specimens collected: cord blood Placenta: spontaneous Cord: 3 umbilical vessels - Repair Episiotomy: none Laceration Description: Perineal - 1st Degree, Superficial - Complications Delivery complications: none Delivery comments: of viable, vigorous male infant in the HERI position. No nuchal cord, no shoulder dystocia, no meconium encountered. Infant placed on maternal abdomen, warmed, dried and stimulated. Cord double clamped and cut after pulsations ceased with the assistance of FOB. Apgars 8 and 9 at one and five minutes of age respectively. Placenta delivered spontaneously and appears grossly intact; 3 vessel cord. Upon perineal inspection, a first degree laceration was noted and repaired with 2-0 monocryl. Several small hemostatic superficial lacerations were noted and left to heal by second intention. Fundus firm and at U/3 with scant bleeding. EBL 100mL. Dr Tapia notified of delivery - Disposition Mom disposition: stable in LDR disposition: stable in LDR
[2019-03-10] MEDS ORDERED: Rho Immune Globulin 1,500 UNIT SYRINGE IM PRN (14:30)
[2019-03-10] MEDS ORDERED: Benzocaine/Menthol 56 GM AEROSOL SPRAY TP PRN (14:30)
[2019-03-10] MEDS ORDERED: Measles/Mumps/Rubella Vacc 0.5 ML VIAL SQ PRN (14:30)
[2019-03-10] MEDS ORDERED: Acetaminophen 325 MG TABLET PO PRN (14:30)
[2019-03-10] MEDS ORDERED: Oxytocin 20 units/ LR 1000 mL 20 UNIT/1,000 ML BAG IVC ONE (14:30)
[2019-03-10] MEDS: Ibuprofen 600 MG TABLET PO PRN ×2 (15:01→22:57)
[2019-03-10] MEDS: Melatonin 3 MG TABLET PO SCH (22:58)
[2019-03-11] MEDS: Ibuprofen 600 MG TABLET PO PRN ×2 (05:29→18:21)
[2019-03-11] MEDS: Prenatal Vit/FA 1 EACH TABLET PO SCH (10:35)
--- NOTE | 2019-03-11 10:47 | OB/GYN Progress Note ---
Date of Encounter: 03/11/19 Time of Encounter: 10:43 - Assessment and Plan (1) Drug abuse and dependence Current Visit: Yes Status: Acute currently on detox regimen patient scheduled to join subutex group (2) Vaginal delivery Current Visit: No Status: Acute Continue routine care discharge home tomorrow. Subjective - Subjective Principal diagnosis: status post vaginal delivery Interval history: Patient day one . Patient is currently detoxing from injecting subutex. Patient eating regular diet. Patient reports passing a large blood clot early this morning. Patient denies tubal. Patient is aware that tubal may not be able to be done today. Patient reports: appetite normal, voiding normally, pain well controlled, ambulating normally : doing well, bottle feeding (and breast feeding) Objective - Latest Vital Signs Latest vital signs: Vital Signs Temp Pulse Resp BP Pulse Ox 03/11/19 05:30 98.6 F 72 16 111/64 99 03/10/19 22:50 97.8 F 83 16 115/73 99 03/10/19 19:07 98.4 F 64 16 106/63 100 03/10/19 17:58 97.7 F 63 16 110/63 98 Intake and Output 03/10/19 03/11/19 03/11/19 23:59 07:59 15:59 Intake Total 800 / 800 480 / 480 Output Total 1100 / 1100 400 / 400 Balance -300 / -300 80 / 80 Intake: Oral 800 / 800 480 / 480 Output: Urine 1100 / 1100 400 / 400 - Exam Lungs: bilateral: normal Chest: Normal S1, Normal S2 Extremities: Present: normal Abdomen: Present: normal appearance, soft, gravid Uterus: Present: normal, firm Uterus Position: At Umbilicus, Midline
[2019-03-11] MEDS: Melatonin 3 MG TABLET PO SCH (21:18)
[2019-03-11] MEDS ORDERED: *HR* LORazepam 2 MG/ML VIAL IVP PRN (23:21)
[2019-03-12] MEDS: Ibuprofen 600 MG TABLET PO PRN ×2 (03:06→09:18)
[2019-03-12 08:21] VITALS: BP 114/71
[2019-03-12] MEDS: Prenatal Vit/FA 1 EACH TABLET PO SCH (08:41)
--- NOTE | 2019-03-12 11:11 | Discharge Summary ---
Date of Encounter: 03/12/19 Time of Encounter: 11:07 - Discharge Diagnosis (1) Drug withdrawal Priority: Primary Status: Acute Qualifiers: Substance type: opioid Qualified Code(s): F11.23 - Opioid dependence with withdrawal (2) Opiate abuse, episodic Priority: Primary Status: Acute (3) Vaginal delivery Priority: Primary Status: Acute Comments: Stable, pt states she is feeling symptoms of withdrawal including pain and nausea. Pt states desires to be discharged so she can go to the ED for treatment for her withdrawal symptoms. Bleeding minimal, breast and bottle feeding. - Discharge Medications Prescriptions: New Ferrous Sulfate 325 mg PO 0800 #60 tablet Acetaminophen [Tylenol] 650 mg PO Q6HR PRN tablet PRN Reason: Mild Pain Amitriptyline [Elavil] 25 mg PO HS #14 tablet Ibuprofen [Motrin] 600 mg PO Q6HR PRN #60 tablet PRN Reason: Cramping Sertraline [Zoloft] 25 mg PO HS #60 tablet Benzocaine/Menthol Stafford [Dermoplast Stafford] 1 appl TP QID PRN aerosol PRN Reason: See Comments Docusate [Colace] 100 mg PO BID #30 capsule Melatonin 9 mg PO HS #60 tablet Continued Vit/Iron Fumarate/FA [ Tablet] 1 each PO DAILY Discontinued Buprenorphine HCl [Subutex] 2 mg SL DAILY Home Medications: Vit/Iron Fumarate/FA [ Tablet] 1 each PO DAILY 06/22/17 [History] Acetaminophen [Tylenol] 650 mg PO Q6HR PRN tablet 03/12/19 [Rx] Amitriptyline [Elavil] 25 mg PO HS #14 tablet 03/12/19 [Rx] Benzocaine/Menthol Stafford [Dermoplast Stafford] 1 appl TP QID PRN aerosol 03/12/19 [Rx] Docusate [Colace] 100 mg PO BID #30 capsule 03/12/19 [Rx] Ferrous Sulfate 325 mg PO 0800 #60 tablet 03/12/19 [Rx] Ibuprofen [Motrin] 600 mg PO Q6HR PRN #60 tablet 03/12/19 [Rx] Melatonin 9 mg PO HS #60 tablet 03/12/19 [Rx] Sertraline [Zoloft] 25 mg PO HS #60 tablet 03/12/19 [Rx] Allergies/Adverse Reactions: Allergy/AdvReac Type Severity Reaction Status Date / Time No Known Allergies Allergy Verified 07/02/17 23:08 Data Procedures and tests throughout hospitalization: Laboratory Tests 03/09/19 03/09/19 18:50 19:31 WBC 14.0 H RBC 4.02 Hgb 9.5 L Hct 30.5 L MCV 75.9 L MCH 23.6 L MCHC 31.1 L RDW 13.5 Plt Count 488 H MPV 9.7 Immature Gran % 0.6 Seg Neutrophils % 68.8 Lymphocytes % 20.1 Monocytes % 8.7 Eosinophils % 1.5 Basophils % 0.3 Neutrophils # 9.6 H Lymphocytes # 2.8 Monocytes # 1.2 Eosinophils # 0.2 Basophils # 0.0 Urine Opiates Screen Negative Ur Buprenorphine Scrn Positive H Ur Barbiturates Screen Negative Ur Phencyclidine Scrn Negative Ur Amphetamines Screen Negative U Benzodiazepines Scrn Negative Urine Cocaine Screen Negative U Marijuana (THC) Screen Negative Ur Drug Screen Interp See Below Date of admission: 03/09/19 19:33 Primary care physician: PCP NONE Consults: 03/09/19 19:34 Consult to Vocational Technical Education Teacher ([employer]) [CONS] Routine Reason For Exam: Reason for SW Consult: subutex abuse 03/10/19 14:30 Consult to Supervisor Claims [CONS] Routine Comment: Vaginal delivery, consult needed Consult to Vocational Technical Education Teacher [CONS] Routine Reason for SW Consult: street subutex use Discharging clinician: Adrianne Tellez Anticipated date of discharge: 03/12/19 - Patient Status Disposition: Home, Self-Care Condition: Good Functional capacity at discharge: independent ambulation Overall status at discharge: patient is back to baseline - Discharge Instructions Follow Up With: NONE,PCP [Primary Care Provider] - Tawanda Porras MD [Partnered Physician] - - Diet and Activity Activity: resume usual activities as tolerated Diet: regular diet Hospital Course Reason for admission: IUP at term Delivery: Episiotomy: none Laceration: 1st degree Other procedures: none complications: none Discharge diagnosis: IUP at term delivered [place] baby: male Hospital course: Delivery - Delivery Date: 03/10/19 Provider: Ning Jacobo Intrapartum events: none Delivery induction: none Delivery augmentation: pitocin Delivery monitor: external FHT, external uterine Anesthesia: epidural Quantitated Blood Loss: 100 - (s) Infant A Infant Delivery Date: 03/10/19 Infant Delivery Time: 13:50 Presentation: vertex Position: HERI Route of delivery: Gender: Male Viability: Viable Pounds: 8 Ounces: 7 Weight Gram: 3.825 kg at 1 minute: 8 at 5 mins: 9 Shoulder Dystocia: not encountered Specimens collected: cord blood Placenta: spontaneous Cord: 3 umbilical vessels - Repair Episiotomy: none Laceration Description: Perineal - 1st Degree, Superficial - Complications Delivery complications: none Delivery comments: of viable, vigorous male in the HERI position. No nuchal cord, no shoulder dystocia, no meconium encountered. placed on maternal abdomen, warmed, dried and stimulated. Cord double clamped and cut after pulsations ceased with the assistance of FOB. Apgars 8 and 9 at one and five minutes of age respectively. Placenta delivered spontaneously and appears grossly intact; 3 vessel cord. Upon perineal inspection, a first degree laceration was noted and repaired with 2-0 monocryl. Several small hemostatic superficial lacerations were noted and left to heal by second intention. Fundus firm and at U/3 with scant bleeding. EBL 100mL. Dr Tapia notified of delivery - Disposition Mom disposition: stable in PP, and appropriate for discharge Time Attestation: Total time spent providing and/or coordinating discharge services: Time Spent: Less than 30 minutes Exam - Constitutional Vitals: Temp Pulse Resp BP Pulse Ox 98.5 F 70 20 114/71 99 03/12/19 08:20 03/12/19 08:20 03/12/19 08:20 03/12/19 08:20 03/12/19 08:20 General appearance IM: A&O X 3 - Respiratory Respiratory exam: Present: CTAB - Cardiovascular Cardiovascular exam IM: Present: RRR - GI/Abdominal GI/Abdominal exam IM: soft - Uterine Tone: Firm Uterus Position: At Umbilicus - Extremities Exam Extremities exam IM: Present: normal capillary refill, normal inspection - Neurological Exam Neurological exam: normal gait, oriented X3 - Psychiatric Additional comments: anxious and pacing around room. tearful about situation.
== END 2019-03-12 11:28 | disposition home or self-care (01) | DRG 806 ==
LOC: 1NENULAB → 1NENUOBS 03-10 18:09
PROVIDERS: ADMIT Advanced Practice Midwife; ATTEND Advanced Practice Midwife